=== PATIENT | male | born 1945 | race Caucasian/White ===

== ENCOUNTER 2017-06-25 14:36 | Emergency (ER) | payer OTHER, MEDICAID ==
[2017-06-25 14:43] VITALS: RESP 16
--- NOTE | 2017-06-25 14:59 | EDPHY ---
HPI/HX/ROS/PE/MDM Narrative: CHIEF COMPLAINT: Right elbow injury HPI: The patient is a 71-year-old male who denies any significant past medical history. He is not on anticoagulants. He states he was in his usual state of health until last night when he banged his olecranon on a table. He reports swelling and pain. He states he has come to the ER to see if it was broken. The patient denies fever or any infectious symptoms. REVIEW OF SYSTEMS: Aside from elements discussed in the HPI, a comprehensive 10-point review of systems was reviewed and is negative. PMH: Denies. SOCIAL HISTORY: Denies alcohol or drug abuse. PHYSICAL EXAM: General:Patient is alert, in no acute distress. Extremities: Right elbow: There is tenderness and swelling as well as mild erythema over the right olecranon bursa. There is no tenderness to the radial head. Distal exam is normal. No skin lesions, abrasion or laceration. Neuro: Oriented x3. Normal motor function. Normal sensory function. MDM: This patient presents with what appears to be a subacute olecranon bursitis, but the patient is adamant that this all began after a blunt force injury to the likely non last night. I see no evidence of joint space infection. There is no break in skin to suggest cellulitis. X-ray negative for fracture. I think the most appropriate plan of care is to place the patient in a sling and have him try conservative therapy. I will prescribe him antibiotics should this worsen but he is instructed to take these only in that case. - Data Points Imaging Results: Imaging Impressions Elbow X-Ray 06/25/17 14:59 Impression: 1. No definite acute fracture. 2. Mild osteoarthritis, radial head region. 3. Consider additional imaging if symptoms persist, if clinically indicated. Imaging: I viewed and interpreted images myself General Time Seen by Provider: 06/25/17 14:56 Initial Vital Signs: Initial Vital Signs Temperature (C) 36.7 C 06/25/17 14:39 Heart Rate 110 H 06/25/17 14:39 Respiratory Rate 16 06/25/17 14:39 Blood Pressure 101/87 H 06/25/17 14:39 O2 Sat (%) 96 06/25/17 14:39 O2 Delivery Mode Room Air Allergies/Adverse Reactions: No Known Allergies Allergy (Unverified 06/25/17 14:43) Home Medications: Medication Instructions Recorded Cephalexin [Keflex] 500 mg PO Q6H #28 cap 06/25/17 Departure - Departure Disposition: Home, Routine, Self-Care Clinical Impression: Olecranon bursitis of right elbow Condition: Good Instructions: Elbow Bursitis (ED) Additional Instructions: Rest, ice, elevation. Follow up with an orthopedic surgeon within one week if pain persists. Return to the emergency department for worsening pain, swelling , numbness, weakness or other concerns. Wear sling for comfort, weight bear as tolerated. Take antibiotics only if redness and swelling worsens, or fever develops. Referrals: NONE *PRIMARY CARE P,. [Primary Care Provider] - As per Instructions Prescriptions: Cephalexin [Keflex] 500 mg PO Q6H #28 cap
[2017-06-25 15:51] VITALS: BP 104/75; PULSE 69; TEMP 98.8; O2SAT 95
== END 2017-06-25 15:52 | disposition home or self-care (01) ==
DX: M70.21 Olecranon bursitis, right elbow (principal); W22.8XXA Striking against or struck by other objects, initial encounter; Y99.8 Other external cause status
CPT/HCPCS: 73080; 99283; A4565

== ENCOUNTER → 2018-12-23 | Outpatient (CLI) | payer OTHER, MEDICAID | LOC: BMCIMAGING 07:56 | PROVIDERS: ATTEND Physician Assistant | DX: B18.2 Chronic viral hepatitis C (principal); F17.210 Nicotine dependence, cigarettes, uncomplicated ==